=== PATIENT | female | born 1960 | race Caucasian/White ===

== ENCOUNTER 2016-10-29 19:25 | Observation (INO) | payer MEDICARE ==
[~2016-10-29] VITALS: Ht 157.5 cm; Wt 65.0 kg
[2016-10-29 20:38] LABS: ASPARTATE AMINO TRANSFERASE 40 U/L (15-37); BLOOD UREA NITROGEN 7 mg/dL (7-18)
[2016-10-29 20:42] LABS: ACETAMINOPHEN < 2 mcg/mL (10-30)
[2016-10-29] MEDS ORDERED: LORazepam 2 MG/ML, 1ML ONE ×2 (21:20→21:32)
[2016-10-29] MEDS ORDERED: LORazepam 2 MG/ML, 1ML IVPush ONE (21:45)
[2016-10-30 00:23] LABS: DAU SCREEN DISCLAIMER
[2016-10-30] MEDS ORDERED: LORazepam 1MG TABLET ONE (07:40)
[2016-10-30] MEDS ORDERED: LORazepam 1MG TABLET PO ONE (08:00)
[2016-10-30] MEDS ORDERED: LEVOTHYROXINE 75 MCG TABLET PO SCH (08:30)
[2016-10-30] MEDS ORDERED: ZIPRASIDONE 20MG CAPSULE PO PRN (08:30)
[2016-10-30] MEDS ORDERED: LORazepam 1MG TABLET PO PRN (08:30)
[2016-10-30] MEDS ORDERED: ONDANSETRON ODT 4 MG PO PRN (08:30)
[2016-10-30] MEDS ORDERED: HYDROcodone/APAP 5/325 TABLET PO PRN (08:30)
[2016-10-30 08:50] VITALS: BP 108/66
[2016-10-30] MEDS ORDERED: ENALAPRIL 10 MG TABLET PO SCH (09:00)
[2016-10-30] MEDS ORDERED: ENAL5TAB PO (11:57)
[2016-10-30] MEDS ORDERED: LEVO75TA PO (11:57)
[2016-10-30] MEDS ORDERED: ROSU20TA PO (11:57)
[2016-10-30] MEDS ORDERED: ENAL10TA PO (11:57)
[2016-10-30] MEDS ORDERED: DULO60CA7 PO (11:57)
[2016-10-30] MEDS ORDERED: TRAZ100T15 PO (11:57)
[2016-10-30] MEDS ORDERED: TRAZODONE 100MG TABLET PO SCH (21:00)
== END 2016-10-30 17:20 ==
LOC: ED 20:46 → EDIP 20:52 → INTOOBSV 20:52 → 3E 10-30 08:54
PROVIDERS: ADMIT Internal Medicine; ATTEND Internal Medicine
DX: F29 Unspecified psychosis not due to a substance or known physiological condition (principal); G35 Multiple sclerosis; I10 Essential (primary) hypertension; D72.829 Elevated white blood cell count, unspecified; E03.9 Hypothyroidism, unspecified; E78.5 Hyperlipidemia, unspecified; F12.90 Cannabis use, unspecified, uncomplicated; F17.210 Nicotine dependence, cigarettes, uncomplicated; Z80.0 Family history of malignant neoplasm of digestive organs
CPT/HCPCS: 36415; 71010; 80053; 80307; 80329; 81001; 85025; 99285; G0378; G0480

== ENCOUNTER → 2016-12-15 | Outpatient (CLI) | payer MEDICARE ==
[~2016-12-15] MED LIST: DULO60CA7 PO; ENAL10TA PO; ENAL5TAB PO; LEVO75TA PO; ROSU20TA PO; TRAZ100T15 PO
== END | disposition home or self-care (01) ==
LOC: RAD 13:38
PROVIDERS: ATTEND Orthopaedic Surgery Orthopaedic Surgery of the Spine
DX: M51.34 Other intervertebral disc degeneration, thoracic region (principal); M48.02 Spinal stenosis, cervical region; M25.78 Osteophyte, vertebrae; M47.894 Other spondylosis, thoracic region
CPT/HCPCS: 72141; 72146

== ENCOUNTER → 2017-02-25 | Outpatient (CLI) | payer MEDICARE ==
[~2017-02-25] MED LIST changes: +GADOBUTROL 7.5 MMOL/7.5 ML PFS ONE
== END | disposition home or self-care (01) ==
LOC: CFH 12:49
PROVIDERS: ATTEND Nurse Practitioner Primary Care
DX: R90.82 White matter disease, unspecified (principal); E78.2 Mixed hyperlipidemia; I10 Essential (primary) hypertension; E03.9 Hypothyroidism, unspecified; G89.29 Other chronic pain; F06.4 Anxiety disorder due to known physiological condition; G31.84 Mild cognitive impairment of uncertain or unknown etiology; Z72.0 Tobacco use; Z87.39 Personal history of other diseases of the musculoskeletal system and connective tissue; Z86.19 Personal history of other infectious and parasitic diseases
CPT/HCPCS: 70553; A9585

== ENCOUNTER → 2017-03-08 | Outpatient (CLI) | payer MEDICARE ==
[~2017-03-08] MED LIST changes: -GADOBUTROL 7.5 MMOL/7.5 ML PFS ONE
== END | disposition home or self-care (01) ==
LOC: CFH 10:32
PROVIDERS: ATTEND Internal Medicine
DX: Z12.31 Encounter for screening mammogram for malignant neoplasm of breast (principal)
CPT/HCPCS: G0202

== ENCOUNTER → 2017-04-29 | Outpatient (CLI) | payer MEDICARE ==
[~2017-04-29] MED LIST changes: +CHOL100015 PO; +ESTR1PAT40 TD; +METO25TA35 PO
[2017-04-29 12:30] LABS: HEMATOCRIT 44.6 % (34.6-47.8); HEMOGLOBIN 15.4 g/dL (11.7-16.4); WHITE BLOOD COUNT 7.6 x10^3/uL (3.4-10)
[2017-04-29 12:42] LABS: PATH.CAST-FLAG NOT PRESENT; SPERM-FLAG NOT PRESENT; SRC-FLAG NOT PRESENT; XTAL-FLAG NOT PRESENT; YLC-FLAG NOT PRESENT
[2017-04-29 12:56] LABS: ASPARTATE AMINO TRANSFERASE 22 U/L (15-37); BLOOD UREA NITROGEN 13 mg/dL (7-18)
== END | disposition home or self-care (01) ==
LOC: STAR 11:29
PROVIDERS: ATTEND Neurological Surgery
DX: Z01.818 Encounter for other preprocedural examination (principal); R03.0 Elevated blood-pressure reading, without diagnosis of hypertension; M51.36 Other intervertebral disc degeneration, lumbar region; Z87.891 Personal history of nicotine dependence; R79.1 Abnormal coagulation profile
CPT/HCPCS: 36415; 71020; 80053; 81001; 85025; 85610; 85730; 93005

== ENCOUNTER 2017-05-12 07:08 | Observation (INO) | payer MEDICARE ==
[~2017-05-12] VITALS: Ht 157.5 cm; Wt 53.0 kg
[~2017-05-12 07:08] MED LIST changes: +BACITRACIN 50,000 UNIT ONE; +BUPIVACAINE/PF 0.5% ONE; +EPINEPHRINE 1 MG/ML, 1ML ONE; +THROMBIN 5,000 UNIT VIAL TP ONE
[2017-05-12] MEDS ORDERED: LACTATED RINGERS 1,000 ML IV SCH (07:34)
[2017-05-12] MEDS ORDERED: DIAZ10TA PO (07:37)
[2017-05-12 07:40] VITALS: BP 106/72
[2017-05-12] MEDS ORDERED: FENTANYL PF 250 MCG/5ML ONE (09:11)
[2017-05-12] MEDS ORDERED: MIDAZOLAM 1 MG/ML, 2ML ONE (09:11)
[2017-05-12] MEDS ORDERED: DEXAMETHASONE 4 MG/ML, 1ML ONE (09:12)
[2017-05-12] MEDS ORDERED: ONDANSETRON 2MG/ML, 2ML ONE (09:12)
[2017-05-12] MEDS ORDERED: PROPOFOL 10 MG/ML, 20ML ONE (09:12)
[2017-05-12] MEDS ORDERED: CEFAZOLIN 1,000 MG ONE (09:12)
[2017-05-12] MEDS ORDERED: LIDOCAINE GEL 2%, 5ML ONE ×2 (09:21→10:58)
[2017-05-12] MEDS ORDERED: ROCURONIUM 10 MG/ML,10ML ONE (10:05)
[2017-05-12] MEDS ORDERED: SUCCINYLCHOLINE 20 MG/ML, 10ML ONE (10:05)
[2017-05-12] MEDS ORDERED: PROMETHAZINE 25 MG/ML, 1ML IV PRN (10:30)
[2017-05-12] MEDS ORDERED: MEPERIDINE/PF 25MG/0.5ML IVPush PRN (10:30)
[2017-05-12] MEDS ORDERED: ONDANSETRON 2MG/ML, 2ML IVPush PRN ×2 (10:30→12:30)
[2017-05-12] MEDS ORDERED: MIDAZOLAM 1 MG/ML, 2ML IV PRN (10:30)
[2017-05-12] MEDS ORDERED: LABETALOL 5MG/ML, 20ML IV PRN (10:30)
[2017-05-12] MEDS ORDERED: DIAZEPAM 5 MG/ML, 2ML IVPush PRN (10:30)
[2017-05-12] MEDS ORDERED: OXYcodone 5 MG/5 ML ORAL.SOL UDC PO PRN (10:30)
[2017-05-12] MEDS ORDERED: ACETAMINOPHEN 325 MG TABLET PO PRN (10:30)
[2017-05-12] MEDS ORDERED: ALBUTEROL/IPRATROPIUM 2.5MG/0.5MG, 3 ML NPPB PRN (10:30)
[2017-05-12] MEDS ORDERED: hydrALAzine 20 MG/ML, 1ML IV PRN (10:30)
[2017-05-12] MEDS ORDERED: LORazepam 2 MG/ML, 1ML IVPush PRN (10:30)
[2017-05-12] MEDS ORDERED: METOCLOPRAMIDE 5 MG/ML, 2ML IV PRN (10:30)
[2017-05-12] MEDS ORDERED: CYCL-259 PO (11:38)
[2017-05-12] MEDS ORDERED: OXYC1TAB9 PO (11:38)
[2017-05-12] MEDS ORDERED: OXYcodone 5 MG/5 ML ORAL.SOL UDC ONE (11:45)
[2017-05-12] MEDS ORDERED: ACETAMINOPHEN 325 MG TABLET ONE (11:45)
[2017-05-12] MEDS ORDERED: FENTANYL PF 100 MCG/2ML ONE (11:45)
[2017-05-12] MEDS: FENTANYL PF 100 MCG/2ML IV PRN ×2 (12:09→12:19)
[2017-05-12] MEDS ORDERED: HYDROmorphone 2 MG/ML, 1ML ONE ×2 (12:25→22:17)
[2017-05-12] MEDS: HYDROmorphone 1 MG/ML, 1ML IV PRN ×2 (12:28→12:33)
[2017-05-12] MEDS ORDERED: PHARMACY MAY ADJ FOR RENAL FX MC PRN (12:30)
[2017-05-12] MEDS ORDERED: BISACODYL 10 MG SUPP PR PRN (12:30)
[2017-05-12] MEDS ORDERED: METOPROLOL TARTRATE 25 MG TABLET PO PRN (12:30)
[2017-05-12] MEDS ORDERED: DIPHENHYDRAMINE 50 MG/ML, 1ML IVPush PRN (12:30)
[2017-05-12] MEDS ORDERED: PROMETHAZINE 25 MG/ML, 1ML IM PRN (12:30)
[2017-05-12] MEDS ORDERED: CYCLOBENZAPRINE 10 MG TABLET PO PRN (12:30)
[2017-05-12] MEDS ORDERED: HYDROmorphone 1 MG/ML, 1ML IVPush PRN (12:30)
[2017-05-12] MEDS ORDERED: MEPERIDINE/PF 100 MG/ML IM PRN (12:30)
[2017-05-12] MEDS ORDERED: MAGNESIUM HYDROXIDE 8%, 30ML UDC PO PRN (12:30)
[2017-05-12] MEDS: NS + 20MEQ KCL 1,000 ML IV SCH (15:19)
[2017-05-12] MEDS: CEFAZOLIN PMX 1GM/50ML 50 ML IVPB SCH (17:57)
[2017-05-12 19:12] VITALS: BP 107/70
[2017-05-12] MEDS: OXYcodone/APAP 10/325MG TABLET PO PRN ×2 (19:19→23:13)
[2017-05-12] MEDS: DULOXETINE 30 MG CAPSULE.DR PO SCH (20:50)
[2017-05-12] MEDS: SODIUM CHLORIDE FLUSH 10ML SYR IVF SCH (20:50)
[2017-05-12] MEDS: TRAZODONE 100MG TABLET PO SCH ×2 (20:51→23:52)
[2017-05-12] MEDS ORDERED: ENALAPRIL 5MG TABLET PO SCH (21:00)
[2017-05-12] MEDS ORDERED: ATORVASTATIN 40 MG TABLET PO SCH (21:00)
[2017-05-13 00:01] VITALS: BP 104/70
[2017-05-13] MEDS: CEFAZOLIN PMX 1GM/50ML 50 ML IVPB SCH (02:41)
[2017-05-13] MEDS: NS + 20MEQ KCL 1,000 ML IV SCH ×2 (02:41→12:00)
[2017-05-13] MEDS: OXYcodone/APAP 10/325MG TABLET PO PRN ×3 (02:56→11:36)
[2017-05-13 04:25] VITALS: BP 96/61
[2017-05-13] MEDS ORDERED: LEVOTHYROXINE 75 MCG TABLET PO SCH (06:00)
[2017-05-13 07:20] VITALS: BP 107/65
[2017-05-13] MEDS: SODIUM CHLORIDE FLUSH 10ML SYR IVF SCH (08:36)
[2017-05-13] MEDS: DULOXETINE 30 MG CAPSULE.DR PO SCH (08:36)
[2017-05-13] MEDS ORDERED: SENNA/DOCUSATE TABLET PO SCH (09:00)
[2017-05-13] MEDS ORDERED: DIAZEPAM 10 MG TABLET PO SCH (09:00)
[2017-05-13] MEDS ORDERED: ENALAPRIL 10 MG TABLET PO SCH (09:00)
[2017-05-13] MEDS ORDERED: PNEUMOCOCCAL 23 VACCINE IM-VACC ONE (09:30)
[2017-05-13 12:14] VITALS: BP 105/74
== END 2017-05-13 13:35 | disposition home or self-care (01) ==
LOC: OUT 07:08 → ORIP 12:06 → 4NOR 13:08 → DCLOUNGE 05-13 13:20
PROVIDERS: ADMIT Neurological Surgery; ATTEND Neurological Surgery
DX: M48.061 Spinal stenosis, lumbar region without neurogenic claudication (principal); M51.16 Intervertebral disc disorders with radiculopathy, lumbar region; I10 Essential (primary) hypertension; J44.9 Chronic obstructive pulmonary disease, unspecified; I25.10 Atherosclerotic heart disease of native coronary artery without angina pectoris; E78.5 Hyperlipidemia, unspecified; Z23 Encounter for immunization
CPT/HCPCS: 63047; 72100; 90471; 90732; 96365; 96375; G0378; J0171; J0330; J0690; J1100; J1170; J2250; J2405; J2704; J3010; J3480; J3490; J7120

== ENCOUNTER 2018-09-19 13:32 | Outpatient (CLI) | payer MEDICARE ==
[~2018-09-19 13:32] MED LIST changes: -BACITRACIN 50,000 UNIT ONE; -BUPIVACAINE/PF 0.5% ONE; +CYCL-259 PO; +DIAZ10TA PO; -EPINEPHRINE 1 MG/ML, 1ML ONE; +OXYC-432 PO; -ROSU20TA PO; +ROSU20TA2 PO; -THROMBIN 5,000 UNIT VIAL TP ONE; +TRAZ-137 PO; -TRAZ100T15 PO
== END 2018-09-19 23:59 | disposition home or self-care (01) ==
LOC: CFH 13:32
PROVIDERS: ATTEND Nurse Practitioner Primary Care
DX: Z12.31 Encounter for screening mammogram for malignant neoplasm of breast (principal); M47.812 Spondylosis without myelopathy or radiculopathy, cervical region; I25.10 Atherosclerotic heart disease of native coronary artery without angina pectoris; I10 Essential (primary) hypertension; M96.1 Postlaminectomy syndrome, not elsewhere classified
CPT/HCPCS: 72040; 75571; 93880; 77067